=== PATIENT | male | born 1945 | race Caucasian/White ===

== ENCOUNTER 2018-02-02 18:20 | Inpatient (IN) | payer OTHER ==
[~2018-02-02] VITALS: Ht 172.7 cm; Wt 93.7 kg
--- NOTE | ~2018-02-02 | HEMODYNAMI ---
PATIENT:WILNER ROLLINS MEDICAL RECORD: [id number] : 47 LOCATION:[facility]- ADMISSION DATE: 02/02/18 Generatedon:02/02/201819:32 Patient name: WILNER ROLLINS Patient #: [id number] SSN: : 1945 Date of study: 02/02/2018 Page: Of Hemodynamic Procedure Report Patient Data Patient Demographics Procedure consent was obtained First Name: WILNER Gender: Male Last Name: AYO : 1945 Patient #: [id number] Age: 72 year(s) Race: Unknown Additional ID: [id number] Contact details [address]: [address] [place] [address] State: [place] City: [place] Zip code: [address] Admission Admission Data Admission Date: 02/02/2018 Admission Time: 18:20 Room #: [facility] Weight (lbs.): 208 Weight (kg.): 94.35 Procedure Procedure Types Cath Procedure Diagnostic Procedure [facility] w/Coronaries PCI Procedure Coronary Stent Coronary Stent Additional AMI/SVG/DAIRY FARM OPERATOR PTCA or Stent AMI-BMS/JENNA Initial Procedure Description Procedure Date Procedure Date: 02/02/2018 Procedure Start Time: 19:03 Procedure End Time: 19:19 Procedure Staff Name Function Stephen Muller RT Monitor Yari Mcfarland RT Scrub Lucas Salcido RN Nurse Dany Schneider MD Performing Physician Procedure Data Cath Procedure Fluoroscopy Diagnostic fluoroscopy Total fluoroscopy Time: 3.4 time: 3.4 min min Diagnostic fluoroscopy Total fluoroscopy dose: 771 dose: 771 mGy mGy Contrast Material Contrast Material Type Amount (ml) Isovue 300 90 Entry Location Entry Primary Successful Side Size Upsize Upsize Entry Closure Succes sful Closure Location (Fr) 1 (Fr) 2 (Fr) Remarks Device Remarks Femoral Right 6 Fr Exoseal artery Short Estimated blood loss: 10 ml Diagnostic catheters Device Type Used For End Catheter Placement MULTIPACK Pigtail 5 Fr Procedure catheter MULTIPACK JL 4.0 5Fr Procedure catheter MULTIPACK 3DRC 5Fr Procedure catheter Procedure Complications No complications Procedure Medications Medication Administration Route Dosage Oxygen etCO2 Nasal cannula 2 l/min Heparin Flush Bag added to field 2 bags (1000units/500ml NS) 0.9% NaCl I.V. 100 ml/hr Lidocaine 2% added to field 20 Fentanyl I.V. 50 mcg Versed I.V. 1 mg Fentanyl I.V. 50 mcg Versed I.V. 1 mg Heparin Bolus I.V. 4000 units Integrilin (Bolus I.V. 8.5 ml 2mg/ml) Integrilin (Bolus wasted 1.5 ml 2mg/ml) Hemodynamics Rest Heart Rate: 77 (bpm) Snapshots Pre Cath Intra NCS Post Cath Vital Signs Time Heart Resp SPO2 etCO2 NIBP (mmHg) Rhythm Pain Sedation Rate (ipm) (%) (mmHg) Status Level (bpm) 18:58:15 77 16 92 0 153/103(144) NSR 0 (11) 10(A) , No pain 19:02:29 81 17 92 34.9 126/88(109) NSR 0 (11) 10(A) , No pain 19:06:41 77 17 92 42.3 122/79(105) NSR 0 (11) 9(A) , No pain 19:10:53 73 16 92 37.2 121/75(100) NSR 0 (11) 9(A) , No pain 19:15:05 73 16 94 48.3 114/81(93) NSR 0 (11) 9(A) , No pain 19:19:10 75 17 93 46.9 133/87(110) NSR 0 (11) 9(A) , No pain Medications Time Medication Route Dose Verified Delivered Reason Notes Effectiveness by by 18:57:27 Oxygen etCO2 2 Dany Zavala Per physician Nasal l/min Wyatt Salcido RN cannula 18:57:36 Heparin Flush added 2 Dany Zavala used for Bag to bags Wyatt Salcido vice president mission integration (1000units/500ml field NS) 18:57:51 0.9% NaCl I.V. 100 Dany Zavala used for ml/hr Wyatt Salcido vice president mission integration 18:57:59 Lidocaine 2% added 20ml Dany Zavala used for to vial Wyatt Salcido vice president mission integration field 19:03:15 Fentanyl I.V. 50 Dany Freedmany for sedation mcg Wyatt Salcido RN 19:03:21 Versed I.V. 1 mg Dany Zavala for sedation Wyatt Salcido RN 19:05:25 Fentanyl I.V. 50 Dany Zavala for sedation mcg Wyatt Salcido RN 19:05:29 Versed I.V. 1 mg Dany Zavala for sedation Wyatt Salcido RN 19:10:11 Heparin Bolus I.V. 4000 Dany Zavala for units Wyatt Salcido RN anticoagulation 19:10:29 Integrilin I.V. 8.5 Dany Zavala for (Bolus 2mg/ml) ml Wyatt Salcido RN antiplatelet therapy 19:10:36 Integrilin wasted 1.5 Dany Zavala for (Bolus 2mg/ml) ml Wyatt Salcido RN antiplatelet therapy Procedure Log Time Note 18:40:19 Lucas Salcido RN sent for patient. Start room use. 18:40:22 Time tracking: Call back (After hours or weekends) 18:40:27 Plan of Care:Hemodynamics will remain stable., Cardiac rhythm will remain stable., Comfort level will be maintained., Respiratory function will remain adequate., Patient/ family verbilizes understanding of procedure., Procedure tolerated without complication., Recovers from procedure without complications.. 18:50:30 Patient received from Other to CCL 1 Alert and oriented. Tansferred to table in Supine position. 18:50:31 Warm blankets applied, and ludivina hugger turned on for patient comfort. 18:50:32 Correct patient and procedure confirmed by team. 18:50:33 Signed procedure consent form obtained from patient. 18:50:34 ECG and BP/O2 sat monitors applied to patient. 18:57:11 Vital chart was started 18:57:27 Oxygen 2 l/min etCO2 Nasal cannula was administered by Lucas Salcido RN; Per physician; 18:57:36 Heparin Flush Bag (1000units/500ml NS) 2 bags added to field was administered by Lucas Salcido RN; used for procedure; 18:57:51 0.9% NaCl 100 ml/hr I.V. was administered by Lucas Salcido RN; used for procedure; 18:57:59 Lidocaine 2% 20ml vial added to field was administered by Lucas Salcido RN; used for procedure; 18:59:03 Rhythm: w/ ST elevation 18:59:05 Full Disclosure recording started 18:59:06 Baseline sample Acquired. 18:59:10 H&P Date Dictated: 02/02/2018 Emergent; H&P N/A. 18:59:11 Pre-procedure instructions explained to patient. 18:59:12 Pre-op teaching completed and patient verbalized understanding. 18:59:13 Family unavailable. 18:59:14 Patient NPO since Midnight. 18:59:16 Is the patient allergic to Iodine/contrast media? No. 18:59:18 Is patient on blood thinner?Yes 18:59:21 ACC The patient was administered the following blood thiners within the last 24 hours: ACCPlavix 18:59:42 LOADED AT 1620 IN [place]. 18:59:44 Patient diabetic? Yes. 18:59:45 If diabetic: On Metformin? Yes 18:59:47 If on Metformin: Last Dose? 02/01/2018 18:59:49 Previous problem with sedation/anesthesia? No ? 18:59:50 Snore? Yes 18:59:51 Sleep apnea? No 18:59:52 Deviated septum? No 18:59:53 Sticks out tongue? Yes 18:59:53 Opens mouth fully? Yes 18:59:56 Airway obstruction? No ? 18:59:59 Dentures? Yes OUT 19:00:10 Pre procedure: right dorsailis pedis pulse 1+ Palpable, but thready & weak; easily obliterated 19:00:14 Patient pain scale 3/10 ?. 19:00:18 IV patent on arrival in right hand with 0.9% NaCl at [facility]. 19:00:19 HEPARIN DRIP DC'D UPON ARRIVAL TO ER. 19:00:20 Lab results completed and on chart. 19:00:23 Right groin area was prepped with chlora-prep and draped in sterile fashion 19:00:24 Sharps counted by scrub and verified by R.N. 19:00:24 Alarms reviewed by RRomán N. 19:00:25 --------ALL STOP TIME OUT------ 19:00:26 Final Timeout: patient, procedure, and site verified with staff and physician. All members of the team are in agreement. 19:00:33 Right groin site verified by team. 19:00:41 Physical assessment completed. ASA score P 3 - A patient with severe systemic disease as per Dany Schneider MD. 19:00:43 Sedation plan: IV Moderate Sedation Medication:Versed, Fentanyl 19:00:47 Use device set Femoral Dx 19:00:50 Use device set TAUTH PCI 19:00:54 ACIST Manifold (29238) opened to sterile field. 19:00:54 Tegaderm 4 x 4 (1626W) opened to sterile field. 19:00:55 ACIST Hand Control (46290) opened to sterile field. 19:00:57 Bag Decanter (2002S) opened to sterile field. 19:00:57 ACIST Syringe (39579) opened to sterile field. 19:00:58 Medline Cath Pack ([id number]) opened to sterile field. 19:00:59 DIAGNOSTIC WIRE .035 260cm J wire (021648) opened to sterile field. 19:01:01 DIAGNOSTIC Multipack 5Fr catheter set (FH8794) opened to sterile field. 19:01:04 INFLATOR Merit BasixCompak (UV5821) opened to sterile field. 19:01:05 CHOICE PT Extra Support 182cm wire ([id number]) opened to sterile field. 19:01:07 SHEATH 6FR [place] (OIA053) opened to sterile field. 19:01:15 IV Extension Set opened to sterile field. 19:03:15 Fentanyl 50 mcg I.V. was administered by Lucas Salcido RN; for sedation; 19:03:21 Versed 1 mg I.V. was administered by Lucas Salcido RN; for sedation; 19:03:37 Procedure started. 19:03:40 Local anesthetic to right femoral artery with Lidocaine 2% by Dany Schneider MD.INITIAL ACCESS ONLY 19:03:42 Zero performed for pressure channel P1 19:03:46 Zero performed for pressure channel P1 19:04:47 A 6 Fr Short sheath was inserted into the Right Femoral artery 19:05:25 Fentanyl 50 mcg I.V. was administered by Lucas Salcido RN; for sedation; 19:05:29 Versed 1 mg I.V. was administered by Lucas Salcido RN; for sedation; 19:05:37 A MULTIPACK Pigtail 5 Fr catheter was advanced over the wire and used for Procedure. 19:05:40 LV angiography performed. 19:05:41 LV gram done using PAULINO 19:05:46 EF : 40 % 19::49 Injector settings: Ml/sec: 10, Volume: 20, 19:05:50 Catheter removed. 19:05:54 A MULTIPACK JL 4.0 5Fr catheter was advanced over the wire and used for Procedure. 19:06:46 LCA angiography performed. 19:06:47 Catheter removed. 19::53 A MULTIPACK 3DRC 5Fr catheter was advanced over the wire and used for Procedure. 19:07:17 RCA angiography performed. 19:07:18 Catheter removed. 19:07:22 GUIDE 6FR AR 2.0 catheter ([id number]) opened to sterile field. 19::40 6 Fr AR 2 guide catheter was inserted over the wire 19::53 CPTXS wire advanced. 19:08:01 Patient Weight : 208 lbs 19:08:50 Wire advanced across lesion. 19:10:11 Heparin Bolus 4000 units I.V. was administered by Lucas Salcido RN; for anticoagulation; 19:10:12 Inflate balloon Inflation number: 1 A EUPHORA 2.5 x 20 Balloon ([id number]) was prepped and advanced across the Mid RCA, then inflated to 13 AUDRA for 0:10 (min:sec). 19:10:29 Integrilin (Bolus 2mg/ml) 8.5 ml I.V. was administered by Lucas Salcido RN; for antiplatelet therapy; 19:10:36 Integrilin (Bolus 2mg/ml) 1.5 ml wasted was administered by Lucas Salcido RN; for antiplatelet therapy; 19:10:37 Multiple inflations made at 21 Atms. 19:11:17 Balloon removed over the wire. 19:12:18 Place stent Inflation Number: 1 A INTEGRITY RX 3.0 x 30 stent ([id number]) was prepped and advanced across the R PDA. The stent was deployed at 9 AUDRA for 0:10 (min:sec). 19:13:11 Stent catheter was removed intact over wire. 19:14:11 Place stent Inflation Number: 2 A INTEGRITY RX 3.5 x 26 stent ([id number]) was prepped and advanced across the Mid RCA. The stent was deployed at 15 AUDRA for 0:10 (min:sec). 19:14:32 Stent catheter was removed intact over wire. 19:14:33 Guide catheter removed. 19:14:33 Wire removed. 19:14:35 EXOSEAL 6Fr (EX600) opened to sterile field. 19:14:49 Sheath removed intact; hemostasis achieved with Exoseal to the Right Femoral artery. 19:14:51 Procedure ended.(Physican Out) 19:18:00 Fluoroscopy time 03.40 minutes. 19:18:04 Fluoroscopy dose: 771 mGy 19:18:04 Flurop Dose total: 771 19:18:11 Contrast amount:Isovue 300 90ml. 19:18:12 Sharps counted by scrub and verified by R.N. 19:18:14 Insertion/operative site no bleeding no hematoma. 19:18:18 Post-op/insertion site Right Femoral artery dressed using a 4 x 4 and Tegaderm. 19:18:19 Post Procedure Pulses reassessed and unchanged 19:18:22 Post-procedure physical assessment completed. ASA score P 2 - A patient with mild systemic disease as per Dany Schneider MD. 19:18:24 Post procedure rhythm: sinus rhythm 19:18:28 Estimated blood loss: 10 ml 19:18:30 Post procedure instruction explained to patient.Patient verbalizes understanding. 19:18:31 Patient needs reinforcement of post procedure teaching. 19:19:00 Procedure type changed to Cath procedure, Diagnostic procedure, LHC, LHC w/Coronaries, PCI procedure, Coronary Stent, Coronary Stent Additional, AMI/SVG/DAIRY FARM OPERATOR PTCA or Stent, AMI-BMS/JENNA Initial 19:19:01 Procedure and supply charges have been captured, reviewed, submitted and are correct. 19:19:04 Procedure Complication : No complications 19:19:33 Vital chart was stopped 19:19:34 See physician's report for complete and final results. 19:19:41 Report given to CVICU. 19:19:46 Patient transfered to CVICU with Bed. 19:19:48 Full Disclosure recording stopped 19:19:48 Procedure ended. 19:19:55 End room use (Document Last) 19:30:27 Pt delevoped hematoma right groin. Femstop placed at 170. 19:31:10 New 20g IV started in the left forearm by Lucas Salcido RN. 19:31:23 FEMSTOP Gold ([id number]) opened to sterile field. 19:31:23 IV CATHETER 20g opened to sterile field. 19:31:43 IV in right hand dc'd. Intervention Summary Intervention Notes Time ActionType Lesion and Equipment Action# Pressure Duration Attributes Used 19:10:12 Inflate Mid RCA EUPHORA 2.5 1 13 00:10 balloon x 20 Balloon ([id number]) 19:12:18 Place stent R PDA INTEGRITY RX 1 9 00:10 3.0 x 30 stent ([id number]) 19:14:11 Place stent Mid RCA INTEGRITY RX 2 15 00:10 3.5 x 26 stent ([id number]) Device Usage Item Name Manufacture Quantity Catalog Number Hospital Part Current Mini mal Lot# / Charge Number Stock Stock Serial# Code Tegaderm 4 x 3M 1 1626W 245865 691391 246597 5 4 (1626W) ACIST Acist 1 13246 455283 206884 595978 5 Manifold Medical (42732) Systems Inc ACIST Hand Acist 1 70534 982190 017194 240189 5 Control Medical (40258) Systems Inc ACIST Acist 1 45237 105874 249844 800859 20 Syringe Medical (55184) Systems Inc Bag Decanter Microtek 1 2001S 823146 93393 013162 5 (2001S) Medical Inc. Medline Cath Medline 1 [id number] 081191 51669 062690 5 Pack ([id number]) DIAGNOSTIC St [place] 1 877595 215664 651646 988027 30 WIRE .035 260cm J wire (883425) DIAGNOSTIC Cardinal 1 LP3348 733705 77099 527480 30 Multipack Health 5Fr catheter set (QE6769) INFLATOR Merit 1 JZ0621 121307 952232 467077 15 [facility] Medical BasixCompak (UD7861) CHOICE PT [place] 1 [id number] 860623 257816 449790 5 Extra Scientific Support 182cm wire ([id number]) SHEATH 6FR Terumo 1 GYP115 849422 766017 531287 40 [place] (VLI316) IV Extension Hospira 1 86934-79 626026 70782 591975 5 Set MULTIPACK Cardinal 1 933909 5 Pigtail 5 Fr Health catheter MULTIPACK JL Cardinal 1 186565 5 4.0 5Fr Health catheter MULTIPACK Cardinal 1 060056 5 3DRC 5Fr Health catheter GUIDE 6FR AR Medtronic 1 [id number] 104137 94651 240737 1 2.0 catheter (UZ2UY40) EUPHORA 2.5 Medtronic 1 [id number] 647457 960838 062564 5 [id number] x 20 Balloon ([id number]) INTEGRITY RX Medtronic 1 [id number] 781228 772304 940586 5 [id number] 3.0 x 30 stent ([id number]) INTEGRITY RX Medtronic 1 [id number] 809724 407665 168883 5 [id number] 3.5 x 26 stent ([id number]) EXOSEAL 6Fr Cardinal 1 EX600 249520 153551 300930 10 (EX600) Health FEMSTOP Gold St [place] 1 X35784 271648 147754 820333 5 (J32467) IV CATHETER [address] [place] 1 0275482-08 773447 584402 151623 5 20g Signature Audit [place] Time Signature Unsigned Intra-Procedure 02/02/2018 Stephen Muller RT(R) 7:20:21 PM RT(R) 02/02/2018 7:29:59 PM Intra-Procedure 02/02/2018 Stephen Muller 7:32:25 PM RT(R) Signatures Monitor : Stephen Muller RT Signature : Date : Time : [facility] [address] [place] [address]
[2018-02-02 19:45] VITALS: BP 135/86
--- NOTE | 2018-02-02 19:45 | NUR ---
PT RECEIVED FROM [facility]. 2 STENTS IN RCA. FEM STOP IN PLACE. NO SIGNS OF BLEEDING. WILL MONITOR CAREFULLY. PULSES PALPABLE. RLE PULSE FOUND WITH DOPPLER
[2018-02-02] MEDS ORDERED: GLUCOPHAGE500 MG PO (19:52)
[2018-02-02] MEDS ORDERED: COREG 3.1253.125 MG PO (19:54)
[2018-02-02] MEDS ORDERED: CADUET 5 MG-201 EACH PO (19:54)
[2018-02-02] MEDS ORDERED: VITAMIN D5000 UNIT PO (19:55)
[2018-02-02 20:06] VITALS: BP 135/86; Ht 172.7 cm; Wt 93.7 kg
[2018-02-02 20:10] LABS: BASOPHILS 0.4 % (0-2); EOSINOPHILS 1.1 % (0-7); HEMOGLOBIN 15.3 g/dL (13.5-17.5); IMMATURE GRANULOCYTES 0.2 % (0-5); LYMPHOCYTES 22.6 % (15-50); MCH 32.1 pg (26.0-34.0); MCHC 36.4 g/dL (31.0-37.0); MCV 88.1 fL (80.0-100.0); MEAN PLATELET VOLUME 11.5 fL (7.4-10.4); MONOCYTES 7.1 % (2-11); NEUTROPHILS 68.6 % (40-80); PLATELET COUNT 175 10x3/uL (130-400); RBC 4.77 10x6/uL (4.20-6.10); RDW 12.7 % (11.5-14.5); WBC 8.5 10x3/uL (4.8-10.8)
[2018-02-02 20:48] LABS: CALC OSMOLALITY 286 mosm/kg (275-300); CALCIUM 8.5 mg/dL (8.5-10.1); CARBON DIOXIDE 24.8 mmol/L (21.0-32.0); CHLORIDE - SERUM 104 mmol/L (98-107); CREATININE - SERUM 0.8 mg/dL (0.6-1.3); GLUCOSE 231 mg/dL (74-106); POTASSIUM - SERUM 4.6 mmol/L (3.5-5.1); SODIUM 139 mmol/L (136-145); UREA NITROGEN 18 mg/dL (7-18); eGFR NON AFRICAN AMERICAN > 90 mL/min (90-120)
[2018-02-02 21:00] VITALS: BP 123/79
[2018-02-02 22:00] VITALS: BP 122/81
[2018-02-02 23:00] VITALS: BP 116/74
[2018-02-03] VITALS (12 sets, daily range): BP systolic 91–116; BP diastolic 61–78
--- NOTE | 2018-02-03 04:42 | NUR ---
NO CHANGES IN PT STATUS. PT RESTING COMFORTABLY IN BED VSS. CALL LIGHT IN REACH. ALL PULSES REMAIN PALPABLE. WILL MONITOR
--- NOTE | 2018-02-03 05:00 | NUR ---
PT REMAINS STABLE. NO ISSUES WITH BLEEDING PULSES PALP.
--- NOTE | 2018-02-03 07:30 | NUR ---
PT RESTING WITH EYES CLOSED. AROUSES TO VOICE. DENIES HAVING PAIN AT THIS TIME. HR IN 60S AND 70S. ON 2L OF O2 VIA NC. R-GROIN CATH SITE. SLIGHT REDNESS NOTED APPEARS TO BE FROM FEM STOP. NO HEMATOMA OR BLEEDING NOTED. PULSES PALPABLE IN UPPER AND LOWER EXTREMITIES. USES URINAL. 275ML OF MARIAN URINE NOTED. SHIFT ASSESSMENT COMPLETED. WILL CONTINUE TO MONITOR.
--- NOTE | 2018-02-03 09:03 | NUR ---
AM MEDS GIVEN. O2 SATURATION 96%. NC REMOVED AT THIS TIME. NO FURTHER NEEDS AT THIS TIME. WILL CONTINUE TO MONITOR.
--- NOTE | 2018-02-03 11:57 | NUR ---
RESTING COMFORTABLY. ON ROOM AIR. MEAL TRAY SET UP. NO FURTHER NEEDS AT THIS TIME. WILL CONTINUE TO MONITOR.
--- NOTE | 2018-02-03 11:58 | NUR ---
APPOINTMENT SET UP WITH DR. EUCEDA ON February AT 1000 AM.
[2018-02-03] MEDS ORDERED: BAYER CHEWABLE81 MG PO (13:06)
[2018-02-03] MEDS ORDERED: COREG 3.1253.125 MG PO (13:07)
--- NOTE | 2018-02-03 13:37 | OP ---
PATIENT NAME: WILNER ROLLINS MEDICAL RECORD: [id number] :47 LOCATION:[facility] ADMISSION DATE:02/02/18 SURGEON: GRACE EUCEDA MD DATE OF OPERATION: 02/02/2018 PROCEDURES: 1. PTCA and stent to the RCA. 2. PTCA and stent to the RCA PDA. 3. Left heart catheterization. 4. Selective coronary angiography. 5. Left ventriculogram. INDICATIONS: Acute inferior myocardial infarction. PROCEDURE IN DETAIL: After informed consent was obtained and after a detailed description of risks, benefits as well as alternative therapies, the patient elected to proceed with angiogram and angioplasty. The right femoral area was prepped and draped in normal sterile fashion. Right femoral artery was cannulated via modified Seldinger technique with placement of 6-Yi sheath. All catheters exchanged through this sheath. FINDINGS: Left ventriculogram was performed in standard 30-degree PAULINO view, reveals inferior hypokinesis. Overall ejection fraction 40%. SELECTIVE CORONARY ANGIOGRAPHY: 1. Left main is with no significant angiographic disease. 2. Left anterior descending has moderate irregularities but no flow-limiting stenosis. 3. Left circumflex has moderate irregularities but no flow-limiting stenosis. 4. Right coronary artery has 90% stenosis in the mid vessel and 100% stenosis of the PDA. PTCA STENT OF THE RCA and PDA: The PDA was addressed with a 3.0 x 30 mm Integrity and the RCA with a 3.5 x 26 mm Integrity. Result was 0% residual stenosis with confucianism of SAMRA-3 flow. IMPRESSION: Successful percutaneous transluminal coronary angioplasty stent of the right coronary artery going from 100% initial stenosis to 0% residual. TRANSINT:[id number] Voice Confirmation ID: [id number] DOCUMENT ID: [id number] GRACE EUCEDA MD at 1337 CC: [id number] DICTATION DATE: 02/02/181918 DIRECTIONAL DRILLER: 02/02/18 2234 ADM IN [place] [id number] [place] [address]
--- NOTE | 2018-02-03 13:37 | HP ---
PATIENT: WILNER ROLLINS MEDICAL RECORD: [id number] ACCOUNT: [id number] LOCATION:[facility].CV06 : [birth year] ADMISSION DATE: 02/02/18 PCP: No PCP HISTORY AND PHYSICAL EXAMINATION ADMITTING DIAGNOSES: 1. Acute myocardial infarction. 2. Coronary artery disease. 3. Diabetes. HISTORY OF PRESENT ILLNESS: This is a gentleman who for the past 2 nights has had chest pain but stayed at home with this. Today, the chest pain worsened. He presented to [facility] and found to have an acute ST-elevation myocardial infarction. He was given IV heparin run here. He just continued to have chest pain, although it is improved. PHYSICAL EXAMINATION: GENERAL APPEARANCE: Well nourished, well developed, appears stated age. Level of distress, comfortable. PSYCHIATRIC: Mental status, alert, normal affect. Orientation, oriented to time, place and person. EYES: Lids and conjunctivae, noninjected. No discharge, no pallor. ENT: Lips, teeth, gums, normal dentition. Oropharynx, no cyanosis, no pallor. NECK: Carotid arteries, bilateral normal upstroke, no bruits, no thrills. JUGULAR VEINS: No jugular venous pressure or distention. CERVICAL LYMPH NODES: Nontender, nonenlarged. THYROID: Not enlarged. Nontender. No nodules. LUNGS: Respiratory effort, unlabored. CHEST: Normal curvature. No thoracic deformity. No chest wall tenderness. Percussion, resonant. Auscultation, clear. No wheezes, no rales, no rhonchi. CARDIOVASCULAR: Precordial exam, nondisplaced. No heaves or pericardial thrills. Rate and rhythm, regular. Heart sounds, normal S1, normal S2. No S3, no gallop, no rub. Systolic murmur, not heard. Diastolic murmur, not heard. EXTREMITIES: No cyanosis, no edema. Peripheral pulses, full and equal in all extremities, except as noted. No bruits appreciated. ABDOMEN: Soft, nondistended. Normal aorta. No bruit. Nontender. No masses. Liver, nontender, no hepatomegaly. Spleen, nontender, no splenomegaly. MUSCULOSKELETAL: No joint tenderness. No joint swelling. No erythema. NEUROLOGICAL: Normal gait, normal strength, normal tone. SKIN: Warm and dry. OVERALL IMPRESSION: Acute myocardial infarction. We will proceed with coronary angiography. Further care depends on the findings of the angiography. TRANSINT:[id number] Voice Confirmation ID: [id number] DOCUMENT ID: [id number] HISTORY AND PHYSICAL [id number] WILNER ROLLINS JEFFREY MD at 1337 CC: [id number] DICTATION DATE: 02/02/18 185 GROUND HOST/HOSTESS: 02/02/1820[address] [facility] [address] [place] [address]
--- NOTE | 2018-02-03 14:26 | NUR ---
DISCHARGE INTRUCTIONS GIVEN. DISCHARGE PAPERS SIGNED AND PLACED IN CHART. L-FOREARM PIV DC'C WITH CATHETER TIP INTACT. PT DISCHARGED AT THIS TIME. PESONAL BELONGINGS SENT WITH PATIENT. WHEELED OUT TO PERSONAL VEHICLE.
--- NOTE | 2018-02-03 18:51 | MORECARE ---
CASE MANAGEMENT DISCHARGE SUMMARY PATIENT: WILNER ROLLINS UNIT: [id number] ADM DATE: 02/02/18 AGE: 72 : 46 SEX: M ROOM/BED: D[facility] AUTHOR: RADU LAMA PHYSICIAN: REFERRING PHYSICIAN: GRACE EUCEDA MD DATE OF SERVICE: 02/03/18 Discharge Plan Patient Name: WILNER ROLLINS [facility] [facility] 1945 Planned Disposition: Home Anticipated Discharge Date: Discharge Date: 02/03/2018 Expected LOS: Initial Reviewer: [email or web address] Initial Review Date: 02/02/2018 Generated: 02/03/18 7:51 pm Patient Name: WILNER ROLLINS Page 91507 at 1851 All edits/amendments must be made on the electronic document DICTATION DATE: 02/03/181850 PRODUCTION UNDERWRITER: RICO 02/03/181850 RPT#: [id number] DC DATE:02/03/18 STATUS: DIS IN [facility] [address] [facility] [place] [address] END OF REPORT
--- NOTE | 2018-02-03 18:58 | MORECARE ---
CASE MANAGEMENT DISCHARGE SUMMARY PATIENT: WILNER ROLLINS UNIT: [id number] ADM DATE: 02/02/18 AGE: 72 : 46 SEX: M ROOM/BED: D[facility] AUTHOR: RADU LAMA PHYSICIAN: REFERRING PHYSICIAN: GRACE EUCEDA MD DATE OF SERVICE: 02/03/18 Discharge Plan Patient Name: WILNER ROLLINS Facility: [facility]:[place] : 1945 Planned Disposition: Home Anticipated Discharge Date: Discharge Date: 02/03/2018 Expected LOS: Initial Reviewer: [email or web address] Initial Review Date: 02/02/2018 Generated: 02/03/18 7:58 pm DCPIA - Discharge Planning Initial Assessment Updated by [email or web address]: Mag Crowell on 02/03/18 6:54 pm * Is the patient Alert and Oriented? Yes * How many steps to enter\exit or inside your home? * PCP [facility] * Pharmacy [facility] * Preadmission Environment Home Alone * ADLs Independent * List name and contact numbers for known caregivers / representatives who currently or will assist patient after discharge: Julio Catesom - Friend [phone] Symone Newell - friend [phone] * Verbal permission to speak to the caregivers and representatives has been obtained from the patient. Yes * Community resources currently utilized None * Additional services required to return to the preadmission environment? No * Can the patient safely return to the preadmission environment? Yes * Has this patient been hospitalized within the prior 30 days at any hospital? No Last DP export: 02/03/18 5:51 Patient Name: WILNER ROLLINS Page 81084 at 1858 All edits/amendments must be made on the electronic document DICTATION DATE: 02/03/181857 SOCIAL SERVICES DIRECTOR: RICO 02/03/181857 RPT#: [id number] DC DATE:02/03/18 STATUS: DIS IN [facility] [address] [place] [address] END OF REPORT
--- NOTE | 2018-02-03 19:06 | MORECARE ---
CASE MANAGEMENT DISCHARGE SUMMARY PATIENT: WILNER ROLLINS UNIT: [id number] ADM DATE: 02/02/18 AGE: 72 : 46 SEX: M ROOM/BED: [facility] AUTHOR: DAINA,DOC PHYSICIAN: REFERRING PHYSICIAN: GRACE EUCEDA MD DATE OF SERVICE: 02/03/18 Discharge Plan Patient Name: WILNER ROLLINS Facility: [facility]:[place] : 1945 Planned Disposition: Home Anticipated Discharge Date: Discharge Date: 02/03/2018 Expected LOS: Initial Reviewer: [email or web address] Initial Review Date: 02/02/2018 Generated: 02/03/18 8:05 pm Comments DCP- Discharge Planning Updated by [email or web address]: Mag Crowell on 02/03/18 6:[address] Late Entry 02-03-18 @ 1400 Patient Name: WILNER ROLLINS Admission Status: Elective Accout number: [id number] Admission Date: 02-02-2018 : 1945 Admission Diagnosis: Attending: RODERICK EUCEDA Current LOS: 1 Anticipated DC Date: Planned Disposition: Home Primary Insurance: [facility] Discharge Planning Comments: CM met with patient and friend after obtaining verbal consent. Patient plans on returning home after discharge. Patient denies any discharge needs. CM will continue to follow and assist with discharge planning / needs. Finish Repair Worker: Mag Crowell DCPIA - Discharge Planning Initial Assessment Updated by [email or web address]: Mag Crowell on 02/03/18 6:54 pm * Is the patient Alert and Oriented? Yes * How many steps to enter\exit or inside your home? * PCP [facility] * Pharmacy [facility] * Preadmission Environment Home Alone * ADLs Independent * List name and contact numbers for known caregivers / representatives who currently or will assist patient after discharge: Julio Butterfield - Friend [phone] Symone eNwell - friend [phone] * Verbal permission to speak to the caregivers and representatives has been obtained from the patient. Yes * Community resources currently utilized None * Additional services required to return to the preadmission environment? No * Can the patient safely return to the preadmission environment? Yes * Has this patient been hospitalized within the prior 30 days at any hospital? No Last DP export: 02/03/18 5:58 Patient Name: WILNER ROLLINS Page [id number] at 1906 All edits/amendments must be made on the electronic document DICTATION DATE: 02/03/181904 PAYROLL MANAGER: RICO 02/03/181904 RPT#: [id number] DC DATE:02/03/18 STATUS: DIS IN [facility] [address] [place] [address] END OF REPORT
--- NOTE | 2018-02-06 14:36 | DS ---
PATIENT:WILNER ROLLINS :[birth year] MEDICAL RECORD: [id number] DISCHARGE SUMMARY ADMISSION DATE: 02/02/18 DISCHARGE DATE: 02/03/18 DISCHARGE DIAGNOSES: 1. Acute inferior myocardial infarction. 2. PTCA and stent, RCA. 3. Hyperlipidemia. This gentleman presents with acute inferior myocardial infarction to [facility], was helicoptered here. He underwent PTCA and stent of the RCA. He had uneventful postop course and was discharged home with the addition of aspirin, Plavix, and Pravachol to his medical regimen. No beta-janet was undertaken secondary to bradycardia. He will follow up with [facility] in one month. TRANSINT:[id number] Voice Confirmation ID: [id number] DOCUMENT ID: [id number] GRACE EUCEDA MD at 1436 CC: [id number] DICTATION DATE: 02/03/18 1047 [employer] WORKER: 02/04/18 1118 DIS IN 02/03/18 [facility] [id number] [place] [address]
== END 2018-02-03 14:29 | disposition home or self-care (01) | DRG 249 ==
LOC: D.CVICU 18:20 → D.SDCHOLD 18:20 → D.CVICU 19:45
PROVIDERS: ADMIT Internal Medicine Interventional Cardiology
PROC: B2151ZZ Fluoroscopy of Left Heart using Low Osmolar Contrast (ICD-10-PCS; 2018-02-02)
PROC: 4A023N7 Measurement of Cardiac Sampling and Pressure, Left Heart, Percutaneous Approach (ICD-10-PCS; 2018-02-02)
PROC: 02703EZ Dilation of Coronary Artery, One Artery with Two Intraluminal Devices, Percutaneous Approach (ICD-10-PCS; principal; 2018-02-02 19:00)
PROC: B2111ZZ Fluoroscopy of Multiple Coronary Arteries using Low Osmolar Contrast (ICD-10-PCS; 2018-02-02 19:00)
DX: I21.19 ST elevation (STEMI) myocardial infarction involving other coronary artery of inferior wall (principal); E11.9 Type 2 diabetes mellitus without complications; I25.10 Atherosclerotic heart disease of native coronary artery without angina pectoris; E78.5 Hyperlipidemia, unspecified

== ENCOUNTER 2018-02-06 01:42 | Inpatient (IN) | payer OTHER, MEDICARE ==
[2018-02-06] VITALS (41 sets, daily range): BP systolic 98–156; BP diastolic 67–101; Ht 172.7 cm; Wt 92.7 kg
[~2018-02-06] VITALS: Ht 172.7 cm; Wt 92.7 kg
--- NOTE | ~2018-02-06 | HEMODYNAMI ---
PATIENT:WILNER ROLLINS MEDICAL RECORD: [id number] : 47 [facility] AD[facility]ION DATE: 02/06/18 Generatedon:02/06/201815:38 Patient name: WILNER ROLLINS Patient #: [id number] SSN: : 1945 Date of study: 02/06/2018 Page: Of Hemodynamic Procedure Report Patient Data Patient Demographics Procedure consent was obtained First Name: WILNER Gender: Male Last Name: AYO : 1945 Patient #: [id number] Age: 72 year(s) Race: Unknown Additional ID: [id number] Contact details Address: [address] [place] [address] State: [place] City: [place] Zip code: [address] Admission Admission Data Admission Date: 02/06/2018 Admission Time: 3:40 Room #: D.CV07 Procedure Procedure Types Cath Procedure Diagnostic Procedure LHC LH w/Coronaries PCI Procedure Coronary Stent Coronary Stent Initial Procedure Description Procedure Date Procedure Date: 02/06/2018 Procedure Start Time: 14:56 Procedure End Time: 15:23 Procedure Staff Name Function Marla Munguia RT Scrub Stephen Muller RT Monitor Dany Schneider MD Performing Physician Caprice Warren RT Monitor Sandy Singh RN Nurse Procedure Data Cath Procedure Fluoroscopy Diagnostic fluoroscopy Total fluoroscopy Time: 8.5 time: 8.5 min min Diagnostic fluoroscopy Total fluoroscopy dose: dose: 1336 mGy 1336 mGy Contrast Material Contrast Material Type Amount (ml) Isovue 300 98 Entry Location Entry Primary Successful Side Size Upsize Upsize Entry Closure Succes sful Closure Location (Fr) 1 (Fr) 2 (Fr) Remarks Device Remarks Femoral Left 6 Fr Exoseal artery Short Estimated blood loss: 10 ml Diagnostic catheters Device Type Used For End Catheter Placement DIAGNOSTIC Pigtail 5Fr Procedure catheter ([id number]) DIAGNOSTIC Pigtail 5Fr Procedure catheter ([id number]) DIAGNOSTIC JL 4.0 5Fr Procedure catheter ([id number]) Procedure Complications No complications Procedure Medications Medication Administration Route Dosage 0.9% NaCl I.V. 100 ml/hr Oxygen etCO2 Nasal cannula 2 l/min Lidocaine 2% added to field 20 Heparin Flush Bag added to field 2 bags (1000units/500ml NS) Versed I.V. 2 mg Fentanyl I.V. 100 mcg Versed I.V. 1 mg Heparin Bolus I.V. 5000 units Lopressor I.V. 5 mg Integrilin (Bolus I.V. 8.5 ml 2mg/ml) Integrilin Drip I.V. drip 15 ml/hr (75mg/100ml) Effient P.O. 60 mg Hemodynamics Rest Pre Cath Intra NCS Post Cath Vital Signs Time Heart Resp SPO2 etCO2 NIBP (mmHg) Rhythm Pain Sedation Rate (ipm) (%) (mmHg) Status Level (bpm) 14:36:42 91 16 95 37.2 146/94(126) NSR 0 (11) 10(A) , No pain 14:40:54 96 18 97 31.3 147/92(121) NSR 0 (11) 10(A) , No pain 14:45:07 91 16 96 38 148/97(118) NSR 0 (11) 10(A) , No pain 14:49:17 100 16 97 31.9 138/85(97) NSR 0 (11) 10(A) , No pain 14:53:31 100 12 97 37.2 123/79(101) NSR 0 (11) 10(A) , No pain 14:57:39 96 13 96 34.3 119/76(88) NSR 0 (11) 9(A) , No pain 15:01:49 98 14 95 40.9 122/76(98) NSR 0 (11) 10(A) , No pain 15:05:57 103 15 95 41 123/78(97) NSR 0 (11) 9(A) , No pain 15:10:07 91 16 97 41 126/77(86) NSR 0 (11) 9(A) , No pain 15:14:19 97 16 98 39.5 122/78(98) NSR 0 (11) 9(A) , No pain 15:18:26 85 17 95 37.2 128/87(99) NSR 0 (11) 9(A) , No pain 15:22:36 85 17 97 35.8 142/88(113) NSR 0 (11) 10(A) , No pain Medications Time Medication Route Dose Verified Delivered Reason Notes Effectiveness by by 14:37:54 0.9% NaCl I.V. 100 Dany Sandy used for ml/hr Wyatt Singh data entry technician 14:38:02 Oxygen etCO2 2 Dany Sandy used for Nasal l/min Wyatt Singh procedure cannula RN 14:38:08 Lidocaine 2% added 20ml Dany Dany for local to vial Wyatt Schneider MD anesthetic field 14:38:13 Heparin Flush added 2 Dany Dany used for Bag to bags Wyatt Schneider MD procedure (1000units/500ml field NS) 14:54:27 Versed I.V. 2 mg Dany Sandy for sedation Wyatt Singh RN 14:54:35 Fentanyl I.V. 100 Dany Sandy for sedation mcg Wyatt Singh RN 15:01:53 Versed I.V. 1 mg Dany Sandy for sedation Wyatt Singh RN 15:01:58 Heparin Bolus I.V. 5000 Dany Sandy for verif ied units Wyatt Singh anticoagulation with Dr. GRIFFIN Schneider 15:07:47 Lopressor I.V. 5 mg Dany Sandy Per physician Wyatt Singh RN 15:19:55 Integrilin I.V. 8.5 Dany Sandy for waste d (Bolus 2mg/ml) ml Wyatt Singh anticoagulation 1.5mL RN 15:20:12 Integrilin Drip I.V. 15 Dany Sandy for (75mg/100ml) drip ml/hr Wyatt Singh anticoagulation RN 15:20:31 Effient P.O. 60 mg Dany Sandy for Wyatt Singh antiplatelet RN therapy Procedure Log Time Note 14:16:56 Stephen Muller RT(R) sent for patient. Start room use. 14:16:57 Time tracking: Regular hours (M-F 7:00 - 5:00) 14:17:01 Plan of Care:Hemodynamics will remain stable., Cardiac rhythm will remain stable., Comfort level will be maintained., Respiratory function will remain adequate., Patient/ family verbilizes understanding of procedure., Procedure tolerated without complication., Recovers from procedure without complications.. 14:35:22 Patient received from CVICU to CCL 2 Alert and oriented. Tansferred to table in Supine position. 14:35:23 Correct patient and procedure confirmed by team. 14:35:23 Warm blankets applied, and ludivina hugger turned on for patient comfort. 14:35:25 ECG and BP/O2 sat monitors applied to patient. 14:35:25 Signed procedure consent form obtained from patient. 14:35:32 Full Disclosure recording started 14:35:37 Rhythm: sinus rhythm , w/ ST elevation 14:35:41 Vital chart was started 14:35:48 H&P Date Dictated: 02/05/2018 Within 30 days and on chart.. 14:35:49 Pre-op teaching completed and patient verbalized understanding. 14:35:49 Pre-procedure instructions explained to patient. 14:35:51 Family unavailable. 14:35:59 Patient NPO since Midnight. 14:36:10 Is the patient allergic to Iodine/contrast media? No. 14:36:37 Is patient on blood thinner?Yes 14:36:39 ACC The patient was administered the following blood thiners within the last 24 hours: ACCPlavix 14:36:41 Patient diabetic? No. 14:36:48 Previous problem with sedation/anesthesia? No ? 14:36:50 Snore? Yes 14:36:51 Deviated septum? No 14:36:51 Sleep apnea? No 14:36:52 Opens mouth fully? Yes 14:36:53 Sticks out tongue? Yes 14:36:56 Airway obstruction? No ? 14:36:58 Dentures? No . 14:37:02 Pre procedure: left dorsailis pedis pulse 2+ Normal; easily identifiable; not easily obliterated 14:37:04 Patient pain scale 0/10 ?. 14:37:09 IV patent on arrival in left forearm with 0.9% NaCl at [facility]. 14:37:11 Lab results completed and on chart. 14:37:15 Left groin area was prepped with chlora-prep and draped in sterile fashion 14:37:16 Sharps counted by scrub and verified by R.N. 14:37:16 Alarms reviewed by R. N. 14:37:54 0.9% NaCl 100 ml/hr I.V. was administered by Sandy Singh RN; used for procedure; 14:38:02 Oxygen 2 l/min etCO2 Nasal cannula was administered by Sandy Singh RN; used for procedure; 14:38:08 Lidocaine 2% 20ml vial added to field was administered by Dany Schneider MD; for local anesthetic; 14:38:13 Heparin Flush Bag (1000units/500ml NS) 2 bags added to field was administered by Dany Schneider MD; used for procedure; 14:50:18 Use device set Femoral Dx 14:50:23 Bag Decanter (2002S) opened to sterile field. 14:50:23 ACIST Syringe (22175) opened to sterile field. 14:50:24 ACIST Hand Control (39975) opened to sterile field. 14:50:25 ACIST Manifold (64962) opened to sterile field. 14:50:26 Tegaderm 4 x 4 (1626W) opened to sterile field. 14:50:29 DIAGNOSTIC WIRE .035 260cm J wire (377494) opened to sterile field. 14:50:29 Medline Cath Pack ([id number]) opened to sterile field. 14:50:37 SHEATH 6FR Patterson (VOG006) opened to sterile field. 14:53:41 Final Timeout: patient, procedure, and site verified with staff and physician. All members of the team are in agreement. 14:53:41 --------ALL STOP TIME OUT------ 14:53:43 Left groin site verified by team. 14:53:47 Physical assessment completed. ASA score P 2 - A patient with mild systemic disease as per Dany Schneider MD. 14:53:51 Sedation plan: IV Moderate Sedation Medication:Versed, Fentanyl 14:54:27 Versed 2 mg I.V. was administered by Sandy Singh RN; for sedation; 14:54:35 Fentanyl 100 mcg I.V. was administered by Sandy Singh RN; for sedation; 14:56:48 Procedure started. 14:56:52 Local anesthetic to left femerol artery with Lidocaine 2% by Dany Schneider MD.INITIAL ACCESS ONLY 14:57:02 A 6 Fr Short sheath was inserted into the Left Femoral artery 14:57:29 A DIAGNOSTIC Pigtail 5Fr catheter ([id number]) was advanced over the wire and used for Procedure. 14:58:16 A DIAGNOSTIC Pigtail 5Fr catheter ([id number]) was advanced over the wire and used for Procedure. 14:58:23 LV gram done using PAULINO 14:58:25 Injector settings: Ml/sec: 10, Volume: 20, 14:58:29 EF : 40 % 14:58:31 Catheter removed. 14:58:37 A DIAGNOSTIC JL 4.0 5Fr catheter ([id number]) was advanced over the wire and used for Procedure. 14:58:43 LCA angiography performed. 14:58:46 Catheter removed. 14:59:03 GUIDE 6FR AR 2.0 catheter (ND0GF58) opened to sterile field. 14:59:10 6 Fr AR 2 guide catheter was inserted over the wire 14:59:27 CHOICE PT Extra Support 182cm wire ([id number]) opened to sterile field. 14:59:32 INFLATOR Merit BasixCompak (EI1966) opened to sterile field. 15:00:03 CHOICE ES 182 wire advanced. 15:00:36 UNABLE TO ADVANCE 182 15:00:38 Wire removed. 15:01:42 CHOICE PT Floppy Straight 300cm guide wire ([id number]) opened to sterile field. 15:01:53 Versed 1 mg I.V. was administered by Sandy Singh RN; for sedation; 15:01:58 Heparin Bolus 5000 units I.V. was administered by Sandy Singh RN; for anticoagulation; verified with Dr. Schneider 15:02:09 CHOICE ES 300 wire advanced. 15:03:38 Inflate balloon Inflation number: 1 A EMERGE OTW 2.5 x 30 balloon ([id number]) was prepped and advanced across the Dist RCA, then inflated to 15 AUDRA for 0:09 (min:sec). 15:04:05 Wire advanced across lesion. 15:04:08 CHOICE PT Floppy Straight 300cm guide wire ([id number]) opened to sterile field. 15:04:21 Balloon removed over the wire. 15:05:58 Inflate balloon Inflation number: 2 A EMERGE OTW 1.5 x 20 balloon ([id number]) was prepped and advanced across the Dist RCA, then inflated to 21 AUDRA for 0:00 (min:sec). 15:06:13 MULTIPLE INFLATIONS AT 21 AUDRA 15:06:39 Balloon removed over the wire. 15:07:47 Lopressor 5 mg I.V. was administered by Sandy Singh RN; Per physician; 15:08:49 The EMERGE OTW 2.5 x 30 balloon ([id number]) was advanced and then removed because of failure to cross lesion 15:10:30 Inflate balloon Inflation number: 3 A EUPHORA 2.5 x 20 Balloon ([id number]) was prepped and advanced across the Dist RCA, then inflated to 11 AUDRA for 0:00 (min:sec). 15:10:38 Inflation number: 4 The EUPHORA 2.5 x 20 Balloon ([id number]) was reinflated across the Dist RCA, to 13 AUDRA for 0:00 (min:sec). 15:10:57 Inflation number: 5 The EUPHORA 2.5 x 20 Balloon ([id number]) was reinflated across the Dist RCA, to 19 AUDRA for 0:00 (min:sec). 15:11:46 Inflation number: 6 The EUPHORA 2.5 x 20 Balloon ([id number]) was reinflated across the Dist RCA, to 17 AUDRA for 0:00 (min:sec). 15:12:08 Balloon removed over the wire. 15:14:11 Place stent Inflation Number: 7 A INTEGRITY OTW 2.5 X 26 stent ([id number]) was prepped and advanced across the Dist RCA. The stent was deployed at 21 AUDRA for 0:10 (min:sec). 15:14:27 Stent catheter was removed intact over wire. 15:16:25 Place stent Inflation Number: 8 A INTEGRITY RX 3.0 x 18 stent ([id number]) was prepped and advanced across the Dist RCA. The stent was deployed at 21 AUDRA for 0:00 (min:sec). 15:16:40 Stent catheter was removed intact over wire. 15:16:41 Wire removed. 15:16:43 Guide catheter removed. 15:17:09 EXOSEAL 6Fr (EX600) opened to sterile field. 15:17:25 Sheath removed intact; hemostasis achieved with Exoseal to the Left Femoral artery. 15:17:37 Procedure ended.(Physican Out) 15:19:00 Fluoroscopy time 08.50 minutes. 15:19:03 Fluoroscopy dose: 1336 mGy 15:19:03 Flurop Dose total: 1336 15:19:06 Contrast amount:Isovue 300 98ml. 15:19:07 Sharps counted by scrub and verified by R.N. 15:19:10 Post-op/insertion site Left Femoral artery dressed using a 4 x 4 and Tegaderm. 15:19:55 Integrilin (Bolus 2mg/ml) 8.5 ml I.V. was administered by Sandy Singh RN; for anticoagulation; wasted 1.5mL 15:20:01 Post-procedure physical assessment completed. ASA score P 2 - A patient with mild systemic disease as per Dany Schneider MD. 15:20:05 Post procedure rhythm: sinus rhythm 15:20:08 Estimated blood loss: 10 ml 15:20:09 Post procedure instruction explained to patient.Patient verbalizes understanding. 15:20:10 Patient needs reinforcement of post procedure teaching. 15:20:12 Integrilin Drip (75mg/100ml) 15 ml/hr I.V. drip was administered by Sandy Singh RN; for anticoagulation; 15:20:31 Effient 60 mg P.O. was administered by Sandy Singh RN; for antiplatelet therapy; 15:21:15 Procedure type changed to Cath procedure, Diagnostic procedure, LHC, LHC w/Coronaries, PCI procedure, Coronary Stent, Coronary Stent Initial 15:23:30 Procedure and supply charges have been captured, reviewed, submitted and are correct. 15:23:33 Procedure Complication : No complications 15:23:34 Vital chart was stopped 15:23:35 See physician's report for complete and final results. 15:23:38 Report given to CVICU. 15:23:48 Patient transfered to CVICU with Bed. 15:23:50 Full Disclosure recording stopped 15:23:50 Procedure ended. 15:23:53 End room use (Document Last) 15:38:08 FEMSTOP Gold ([id number]) opened to sterile field. 15:38:19 Femstop placed over the left femerol artery at 160 mmHg. Hemostasis achieved. Intervention Summary Intervention Notes Time ActionType Lesion and Equipment Action# Pressure Duration Attributes Used 15:03:38 Inflate Dist RCA EMERGE OTW 1 15 00:09 balloon 2.5 x 30 balloon ([id number]) 15:05:58 Inflate Dist RCA EMERGE OTW 2 21 00:00 balloon 1.5 x 20 balloon ([id number]) 15:08:49 Discard EMERGE OTW Balloon 2.5 x 30 balloon ([id number]) 15:10:30 Inflate Dist RCA EUPHORA 2.5 3 11 00:00 balloon x 20 Balloon ([id number]) 15:10:38 Reinflate Dist RCA EUPHORA 2.5 4 13 00:00 balloon x 20 Balloon ([id number]) 15:10:57 Reinflate Dist RCA EUPHORA 2.5 5 19 00:00 balloon x 20 Balloon ([id number]) 15:11:46 Reinflate Dist RCA EUPHORA 2.5 6 17 00:00 balloon x 20 Balloon ([id number]) 15:14:11 Place stent Dist RCA INTEGRITY 7 21 00:10 OTW 2.5 X 26 stent ([id number]) 15:16:25 Place stent Dist RCA INTEGRITY RX 8 21 00:00 3.0 x 18 stent ([id number]) Device Usage Item Name Manufacture Quantity Catalog Number Hospital Part Current Min imal Lot# / Charge Number Stock Stock Serial# Code ACIST Acist 1 71521 393708 048326 420330 20 Syringe Medical (13722) Systems Inc Bag Decanter Microtek 1 2001S 202633 94271 178256 5 (2001S) Medical Inc. ACIST Hand Acist 1 27527 889481 139437 592104 5 Control Medical (42285) Systems Inc ACIST Acist 1 71737 527170 297654 338535 5 Manifold Medical (32625) Systems Inc Tegaderm 4 x 3M 1 1626W 708712 901233 444334 5 4 (1626W) Medline Cath Medline 1 [id number] 698162 65156 241286 5 Pack ([id number]) DIAGNOSTIC St [place] 1 759509 145653 175396 278931 30 WIRE .035 260cm J wire (932487) SHEATH 6FR Terumo 1 MKO082 472298 067541 967755 40 Patterson (OJW117) DIAGNOSTIC Cardinal 2 559158E 914142 811672 732075 5 Pigtail 5Fr Health catheter (570907R) DIAGNOSTIC Cardinal 1 277798N 931018 947941 070988 10 JL 4.0 5Fr Health catheter (306643L) GUIDE 6FR AR Medtronic 1 GL5NF07 734664 10945 928608 1 2.0 catheter (TN5FF14) CHOICE PT [place] 1 [id number] 739846 605474 448982 5 Extra Scientific Support 182cm wire ([id number]) INFLATOR Merit 1 FQ7976 184348 348717 976939 15 [facility] Medical BasixCompak (SY9111) CHOICE PT [place] 2 [id number] 804803 898645 351847 5 Floppy Scientific Straight 300cm guide wire (65849332) EMERGE OTW [place] 1 [id number] 770567 388834 217654 5 91845727 2.5 x 30 Scientific balloon ([id number]) EMERGE OTW [place] 1 [id number] 993856 531036 110883 5 69934924 1.5 x 20 Scientific balloon ([id number]) EUPHORA 2.5 Medtronic 1 [id number] 762927 006656 760024 5 [id number] x 20 Balloon (KKQ0098H) INTEGRITY Medtronic 1 [id number] 630044 077407 7 [id number] OTW 2.5 X 26 stent ([id number]) INTEGRITY RX Medtronic 1 [id number] 732632 988407 903145 5 [id number] 3.0 x 18 stent ([id number]) EXOSEAL 6Fr Cardinal 1 EX600 375821 280418 512212 10 (EX600) Health FEMSTOP Gold [facility] [place] 1 X29948 849674 599825 975440 5 ([id number]) Signature Audit [place] Stage Time Signature Unsigned Intra-Procedure 02/06/2018 Caprice Munguia 3:28:19 PM RT(R) RT(R) 02/06/2018 3:38:00 PM Intra-Procedure 02/06/2018 Caprice Warren 3:38:45 PM RT(R) Signatures Monitor : Stephen Muller RT Signature : Date : Time : Monitor : Caprice Warren Signature : RT Date : Time : [address] [place] [address]
[~2018-02-06 01:42] MED LIST: BAYER CHEWABLE81 MG PO; CADUET 5 MG-201 EACH PO; COREG 3.1253.125 MG PO; GLUCOPHAGE500 MG PO; VITAMIN D5000 UNIT PO
[2018-02-06 02:19] LABS: APTT 24.2 SECONDS (22.8-39.4); INR 1.07 (0.85-1.17); PROTIME 13.4 SECONDS (11.6-15.0)
[2018-02-06 02:55] LABS: CKMB 39.9 U/L (0.0-3.6)
[2018-02-06 02:56] LABS: CREATINE KINASE 837 UL (21-232); TROPONIN-I 31.675 ng/mL (0.000-0.060)
--- NOTE | 2018-02-06 04:02 | NUR ---
PATIENT ARRIVED TO UNIT FROM ER VIA STRETCHER, ACCOMPANIED BY ER STAFF. AAOX4. FOLLOWING COMMANDS. MOVES ALL EXTREMITIES. DENIES PAIN OR DIFFICULTY BREATHING. HR 86. BP 131/86. RR 16. O2 SAT 97% ON 4 L NC. NO COMPLAINTS AT THIS TIME. LT AC PIV INFUSING NITROGLYCERIN DRIP AT 4.5 MLS/HR, WILL TITRATE PER DOCTOR'S ORDERS. URINAL PROVIDED PER PATIENT'S REQUEST, DENIES OTHER NEEDS. CALL LIGHT WITHIN REACH. SEE FLOW SHEET FOR COMPLETE ASSESSEMNT. WILL CONTINUE TO MONITOR.
[2018-02-06] MEDS ORDERED: PLAVIX75 MG PO (04:19)
[2018-02-06] MEDS ORDERED: TIMOPTIC 0.5 % O5 ML EACH EYE (04:20)
[2018-02-06] MEDS ORDERED: LUMIGAN 0.01%2.5 ML EACH EYE (04:20)
[2018-02-06] MEDS ORDERED: ULTRAM50 MG PO (04:21)
--- NOTE | 2018-02-06 05:00 | NUR ---
RESTING, TITRATING NITRO PER DOCTOR'S ORDERS, DENIES NEEDS. WILL CONTINUE TO MONITOR.
[2018-02-06 06:24] LABS: BASOPHILS 0.1 % (0-2); EOSINOPHILS 0.2 % (0-7); HEMATOCRIT 39.1 % (42.0-54.0); HEMOGLOBIN 13.9 g/dL (13.5-17.5); IMMATURE GRANULOCYTES 0.2 % (0-5); LYMPHOCYTES 11.9 % (15-50); MCH 31.9 pg (26.0-34.0); MCHC 35.5 g/dL (31.0-37.0); MCV 89.7 fL (80.0-100.0); MEAN PLATELET VOLUME 11.5 fL (7.4-10.4); MONOCYTES 10.5 % (2-11); NEUTROPHILS 77.1 % (40-80); PLATELET COUNT 193 10x3/uL (130-400); RBC 4.36 10x6/uL (4.20-6.10); RDW 12.7 % (11.5-14.5); WBC 12.4 10x3/uL (4.8-10.8)
[2018-02-06 06:41] LABS: CALC OSMOLALITY 287 mosm/kg (275-300); CALCIUM 8.7 mg/dL (8.5-10.1); CARBON DIOXIDE 25.8 mmol/L (21.0-32.0); CHLORIDE - SERUM 102 mmol/L (98-107); CREATININE - SERUM 0.8 mg/dL (0.6-1.3); GLUCOSE 264 mg/dL (74-106); MAGNESIUM - SERUM 1.7 mg/dL (1.8-2.4); POTASSIUM - SERUM 4.2 mmol/L (3.5-5.1); SODIUM 139 mmol/L (136-145); UREA NITROGEN 15 mg/dL (7-18); eGFR NON AFRICAN AMERICAN > 90 mL/min (90-120)
[2018-02-06 07:07] LABS: TROPONIN-I 56.217 ng/mL (0.000-0.060)
--- NOTE | 2018-02-06 12:46 | MORECARE ---
CASE MANAGEMENT DISCHARGE SUMMARY PATIENT: WINLER ROLLINS UNIT: [id number] ADM DATE: 02/06/18 AGE: 72 : 46 SEX: M [facility] AUTHOR: RADU LAMA PHYSICIAN: REFERRING PHYSICIAN: GRACE EUCEDA MD DATE OF SERVICE: 02/06/18 Discharge Plan Patient Name: WILNER ROLLINS Facility: [facility]:[place] : 1945 Planned Disposition: Home Anticipated Discharge Date: Discharge Date: Expected LOS: Initial Reviewer: [email or web address] Initial Review Date: 02/06/2018 Generated: 02/06/18 1:46 pm DCPIA - Discharge Planning Initial Assessment Updated by [email or web address]: Mag Crowell on 02/06/18 12:41 pm * Is the patient Alert and Oriented? Yes * How many steps to enter\exit or inside your home? Patient Name: WILNER ROLLINS Page 91154 at 1246 All edits/amendments must be made on the electronic document DICTATION DATE: 02/06/18 1246 SKIP PITMAN: RICO 02/06/18 1246 RPT#: [id number] DC DATE: STATUS: ADM IN [facility] [address] [place] [address] END OF REPORT
--- NOTE | 2018-02-06 12:54 | MORECARE ---
CASE MANAGEMENT DISCHARGE SUMMARY PATIENT: WILNER ROLLINS UNIT: [id number] ADM DATE: 02/06/18 AGE: 72 : 46 SEX: M ROOM/BED: D[facility] AUTHOR: RADU LAMA PHYSICIAN: REFERRING PHYSICIAN: GRACE EUCEDA MD DATE OF SERVICE: 02/06/18 Discharge Plan Patient Name: WILNER ROLLINS Facility: [facility]:[place] : 1945 Planned Disposition: Home Anticipated Discharge Date: Discharge Date: Expected LOS: Initial Reviewer: [email or web address] Initial Review Date: 02/06/2018 Generated: 02/06/18 1:54 pm DCPIA - Discharge Planning Initial Assessment Updated by [email or web address]: Mag Crowell on 02/06/18 12:47 pm * Is the patient Alert and Oriented? Yes * How many steps to enter\exit or inside your home? * PCP [facility] * Pharmacy [facility] * Preadmission Environment Home Alone * ADLs Independent * Equipment None * List name and contact numbers for known caregivers / representatives who currently or will assist patient after discharge: JACQUELINE MARIE - FRIEND- [phone] MADY MARTINES - FRIEND- [phone] RUDI LEONARD-DAUGHTER- [phone] * Verbal permission to speak to the caregivers and representatives has been obtained from the patient. Yes * Community resources currently utilized None * Additional services required to return to the preadmission environment? No * Can the patient safely return to the preadmission environment? Yes * Has this patient been hospitalized within the prior 30 days at any hospital? Yes Last DP export: 02/06/18 11:46 Patient Name: WILNER ROLLINS Page 26197 at 1254 All edits/amendments must be made on the electronic document DICTATION DATE: 02/06/18 1253 CREDIT COLLECTION SPECIALIST: RICO 02/06/18 1253 RPT#: [id number] DC DATE: STATUS: ADM IN [facility] [address] [place] [address] END OF REPORT
--- NOTE | 2018-02-06 13:01 | MORECARE ---
CASE MANAGEMENT DISCHARGE SUMMARY PATIENT: WILNER ROLLINS UNIT: [id number] ADM DATE: 02/06/18 AGE: 72 : 47 SEX: M ROOM/BED: D[facility] AUTHOR: DAINA,DOC PHYSICIAN: REFERRING PHYSICIAN: GRACE EUCEDA MD DATE OF SERVICE: 02/06/18 Discharge Plan Patient Name: WILNER ROLLINS Facility: [facility]:[place] : 1945 Planned Disposition: Home Anticipated Discharge Date: Discharge Date: Expected LOS: Initial Reviewer: [email or web address] Initial Review Date: 02/06/2018 Generated: 02/06/18 2:01 pm Comments DCP- Discharge Planning Updated by [email or web address]: Mag Crowell on 02/06/18 11:[address] Patient Name: WILNER ROLLINS Admission Status: ER Accout number: [id number] Admission Date: 02-06-2018 : 1945 Admission Diagnosis: Attending: RODERICK EUCEDA Current LOS: 1 Anticipated DC Date: Planned Disposition: Home Primary Insurance: [facility] Discharge Planning Comments: CM met with patient at bedside. Patient plans to return to his home alone after discharge. Patient denies any discharge needs at this time. CM will continue to follow and assist with discharge planning / needs Type Bar And Segment Assembler: Mag Crowell DCPIA - Discharge Planning Initial Assessment Updated by [email or web address]: Mga Crowell on 02/06/18 12:47 pm * Is the patient Alert and Oriented? Yes * How many steps to enter\exit or inside your home? * PCP [facility] * Pharmacy [facility] * Preadmission Environment Home Alone * ADLs Independent * Equipment None * List name and contact numbers for known caregivers / representatives who currently or will assist patient after discharge: JACQUELINE FRANK - FRIEND- [phone] MADY MARTINES - FRIEND- [phone] RUDI LEONARD-DAUGHTER- [phone] * Verbal permission to speak to the caregivers and representatives has been obtained from the patient. Yes * Community resources currently utilized None * Additional services required to return to the preadmission environment? No * Can the patient safely return to the preadmission environment? Yes * Has this patient been hospitalized within the prior 30 days at any hospital? Yes Last DP export: 02/06/18 11:54 Patient Name: WILNER ROLLINS Page [id number] at 1301 All edits/amendments must be made on the electronic document DICTATION DATE: 02/06/18 1301 TRACK PRODUCTION ENGINEER: RICO 02/06/18 1301 RPT#: [id number] DC DATE: STATUS: ADM IN [facility] [address] [place] [address] END OF REPORT
--- NOTE | 2018-02-06 13:03 | NUR ---
CHLORHEXIDINE BATH GIVEN, CONCENTS SIGNED FOR SURGICAL SCHEDULER AND PLACED ON CHART.
--- NOTE | 2018-02-06 14:35 | NUR ---
PT TO WOOD TANK ERECTOR. PRE OP MEDS GIVEN. CONCENTS ON CHART.
--- NOTE | 2018-02-06 14:36 | HP ---
PATIENT: WILNER ROLLINS MEDICAL RECORD: [id number] ACCOUNT: [id number] LOCATION:[facility] D.CV07 : [birth year] ADMISSION DATE: 02/06/18 PCP: No PCP HISTORY AND PHYSICAL EXAMINATION ADMITTING DIAGNOSES: 1. Acute inferior myocardial infarction. 2. Coronary artery disease. 3. Previous PTCA stent RCA. 4. Previous inferior myocardial infarction. 5. Plavix noncompliance. 6. Ischemic cardiomyopathy. HISTORY OF PRESENT ILLNESS: This is a gentleman who presented last week after 2 days of chest pain that he stayed home and had an inferior myocardial infarction and a closed RCA. He underwent PTCA stent of the RCA. He was discharged home, did not take any Plavix. He then presented to [facility] last night with again acute chest pain and acute inferior myocardial infarction. He was given TPA and transported here. His chest pain is gone. He still has ST elevation. PHYSICAL EXAMINATION: GENERAL APPEARANCE: Well-nourished, well-developed, appears stated age. Level of distress, comfortable. PSYCHIATRIC: Mental status, alert, normal affect. Orientation, oriented to time, place and person. EYES: Lids and conjunctiva, noninjected. No discharge, no pallor. ENT: Lips, teeth, gums, normal dentition. Oropharynx, no cyanosis, no pallor. NECK: Carotid arteries, bilateral normal upstroke, no bruits, no thrills. JUGULAR VEINS: No jugular venous pressure or distention. CERVICAL LYMPH NODES: Nontender, nonenlarged. THYROID: Not enlarged. Nontender. No nodules. LUNGS: Respiratory effort, unlabored. CHEST: Normal curvature. No thoracic deformity. No chest wall tenderness. Percussion, resonant. Auscultation, clear. No wheezes, no rales, no rhonchi. CARDIOVASCULAR: Precordial exam, nondisplaced. No heaves or pericardial thrills. Rate and rhythm, regular. Heart sounds, normal S1, normal S2. No S3, no gallop, no rub. Systolic murmur, not heard. Diastolic murmur, not heard. EXTREMITIES: No cyanosis, no edema. Peripheral pulses, full and equal in all extremities, except as noted. No bruits appreciated. ABDOMEN: Soft, nondistended. Normal aorta. No bruit. Nontender. No masses. Liver, nontender, no hepatomegaly. Spleen, nontender, no splenomegaly. MUSCULOSKELETAL: No joint tenderness. No joint swelling. No erythema. NEUROLOGICAL: Normal gait, normal strength, normal tone. SKIN: Warm and dry. OVERALL IMPRESSION: Repeat angiography. Obviously, clotted stent secondary to Plavix noncompliance. We will proceed with repeat coronary angiography in hopes of opening this one more time. He has been reloaded on Plavix and seems to understand the importance of taking his medication after the intervention. TRANSINT:[id number] Voice Confirmation ID: [id number] DOCUMENT ID: [id number] HISTORY AND PHYSICAL [id number] WILNER ROLLINS JEFFREY MD at 1436 CC: [id number] DICTATION DATE: 02/06/18 0850 COLORING CHECKER: 02/06/18 1004 ADM IN [facility] [id number] [place] [address]
--- NOTE | 2018-02-06 16:00 | NUR ---
1540-REC'D FROM EEG TECHNOLOGIST. ALL MONITORING EQUIPMENT ATTACHED AND ALARMS SET. PT SEDATED BUT AWAKENS EASLY, FOLLOWS COMMAND. L GROIN FEM STOP IN PLACE. NO HEMATOMA TO CATH SITE. NO BLEEDING NOTED. VSS, AFEBRILE.
--- NOTE | 2018-02-06 17:16 | NUR ---
ASA AND COREG GIVEN. PT SWALLOWING WITH OUT DIFFICULTY. PPP, FEM STOP PRESSURE TITRATED TO 120MMHG. NO HEMATOMA, NO ACTIVE BLEEDING. PPP.
--- NOTE | 2018-02-06 19:14 | NUR ---
BEDSIDE SHIFT REPORT GIVEN BY DEPARTING RN. PT LAYING IN BED WITH EYES CLOSED SNORING SOFTLY. ASSESSMENT COMPLETE AT THIS TIME. RT GROIN BRUISED FROM PREVIOUS HEART CATH. LEFT GROIN DRESSING C/D/I. NO BRUISING, OOZING, OR HEMATOMA NOTED. AAOX4. PERRLA. VSS. NO SS OF DISTRESS.
--- NOTE | 2018-02-06 21:30 | NUR ---
BG 177. SEE MAR FOR DETAILS. DENIES PAIN. VOICES NO CONCERNS. WILL CONTINUE TO MONITOR.
--- NOTE | 2018-02-06 23:44 | NUR ---
REASSESSMENT COMPLETE. NO CHANGES TO NOTE. LAYING IN BED SLEEPING SOFTLY.
[2018-02-07] VITALS (9 sets, daily range): BP systolic 96–136; BP diastolic 48–84
--- NOTE | 2018-02-07 07:39 | NUR ---
SHIFT REPORT RECEIVED. AA&OX4. DENIES HAVING CHEST PAIN AT THIS TIME. NO FEVER. HR 98 REGULAR RHYTHM. BP 96/63 MAP 74. ON 4L NC WITH O2 SAT 96%. HAS R-FOREARM PIV SL AND L-AC PIV SL. 300ML OF DARK MARIAN URINE NOTED. BRUISING NOTED ON UPPER ARMS. L-GROIN DRESSING CDI. NO HEMATOMA NOTED. SHIFT ASSESSMENT COMPLETED. WILL CONTINUE TO MONITOR.
--- NOTE | 2018-02-07 08:31 | NUR ---
AM MEDS GIVEN. O2 TURNED DOWN TO 3L. WILL CONTINUE TO MONITOR.
--- NOTE | 2018-02-07 08:43 | NUR ---
EATING BREAKFAST. DR. HERNANDEZ AT BESIDE.
--- NOTE | 2018-02-07 09:30 | NUR ---
FLU VACCINE ADDRESSED WITH PT. HAS NOT HAD FLU VACCINE AND DOES NOT WANT IT AT THIS TIME. PT WILL BE DISCHARGED HOME TODAY SOON HIS RIDE GETS HERE.
--- NOTE | 2018-02-07 10:06 | NUR ---
BLOOD GLUCOSE 265. 10 UNITS OF HUMALOG GIVEN PER SLIDING SCALE. PT UP IN CHAIR. ON ROOM AIR. WAITING ON RIDE TO GET HERE.
--- NOTE | 2018-02-07 11:58 | NUR ---
LUNCH TRAY DELIVERED. SITTING UP IN CHAIR. WAITING ON RIDE IN ORDER TO BE DISCHARGED.
--- NOTE | 2018-02-07 13:01 | NUR ---
PIV ON RIGHT FOREARM AND L-AC DC'D WITH CATHETER TIP INTACT. BP AT THIS TIME WAS 122/73 MAP 89. DISCHARGE INTRUCTIONS REVIEWED WITH PATIENT. EFFIENT PRESCRIPTION GIVEN TO PATIENT. DR. HERNANDEZ INSTRUCTED PT IF NOT ABLE TO GET EFFIENT PRESCRIPTION TODAY TO TAKE HIS PLAVIX UNTIL HE IS ABLE TO GET HIS PRESCRIPTION FILLED. PT STATED UNDERSTANDING. WHEELED OUT TO PERSONAL VEHICLE. PHONE AND PHONE RESEARCH HYDROLOGIST SENT WITH PATIENT.
--- NOTE | 2018-02-08 09:32 | MORECARE ---
CASE MANAGEMENT DISCHARGE SUMMARY PATIENT: WILNER ROLLINS UNIT: [id number] ADM DATE: 02/06/18 AGE: 72 : [birth year] SEX: M ROOM/BED: D[facility] AUTHOR: DAINA,DOC PHYSICIAN: REFERRING PHYSICIAN: GRACE EUCEDA MD DATE OF SERVICE: 02/08/18 Discharge Plan Patient Name: WILNER ROLLINS Facility: [facility]:[place] : 1945 Planned Disposition: Home Anticipated Discharge Date: Discharge Date: 02/07/2018 Expected LOS: Initial Reviewer: [email or web address] Initial Review Date: 02/06/2018 Generated: 02/08/18 10:31 am Comments DCP- Discharge Planning Updated by [email or web address]: Mag Crowell on 02/06/18 11:[address] Patient Name: WILNER ROLLINS Admission Status: ER Accout number: [id number] Admission Date: 02-06-2018 : 1945 Admission Diagnosis: Attending: RODERICK EUCEDA Current LOS: 1 Anticipated DC Date: Planned Disposition: Home Primary Insurance: [facility] [facility] Discharge Planning Comments: CM met with patient at bedside. Patient plans to return to his home alone after discharge. Patient denies any discharge needs at this time. CM will continue to follow and assist with discharge planning / needs Tubular Splitting Machine Tender: Mag Crowell DCPIA - Discharge Planning Initial Assessment Updated by [email or web address]: Mag Crowell on 02/06/18 12:47 pm * Is the patient Alert and Oriented? Yes * How many steps to enter\exit or inside your home? * [facility] * [facility]acy [facility] * Preadmission Environment Home Alone * ADLs Independent * Equipment None * List name and contact numbers for known caregivers / representatives who currently or will assist patient after discharge: JACQUELINE FRANK - FRIEND- [phone] MADY MARTINES - FRIEND- [phone] RUDI LEONARD-DAUGHTER- [phone] * Verbal permission to speak to the caregivers and representatives has been obtained from the patient. Yes * Community resources currently utilized None * Additional services required to return to the preadmission environment? No * Can the patient safely return to the preadmission environment? Yes * Has this patient been hospitalized within the prior 30 days at any hospital? Yes Last DP export: 02/06/18 12:01 Patient Name: WILNER ROLLINS Page 25404 at 0932 All edits/amendments must be made on the electronic document DICTATION DATE: 02/08/18930 THERAPEUTIC RADIOLOGIST: [place] 02/08/18930 RPT#: [id number] DC DATE:02/07/18 STATUS: DIS IN [facility] [address] [place] [address] END OF REPORT
--- NOTE | 2018-02-21 13:28 | OP ---
PATIENT NAME: WILNER ROLLINS MEDICAL RECORD: [id number] :[birth year] LOCATION:[facility].CV07 ADMISSION DATE:02/06/18 SURGEON: GRACE EUCEDA MD DATE OF OPERATION: 02/06/2018 PROCEDURES: 1. PTCA stent RCA. 2. Left heart catheterization. 3. Selective coronary angiography. 4. Left ventriculogram. INDICATION: Acute inferior myocardial infarction. DESCRIPTION OF PROCEDURE: After informed consent was obtained and after detailed description of risks, benefits as well as alternative therapies, the patient elected to proceed with angiogram and angioplasty. The left femoral area was prepped and draped in normal sterile fashion. Left femoral artery was cannulated via modified Seldinger technique with placement of 6-Romansh sheath. All catheters exchanged through this sheath. FINDINGS: Left ventriculogram was performed in standard 30-degree PAULINO view, reveals inferior hypokinesis, but ejection fraction preserved at 50%. SELECTIVE CORONARY ANGIOGRAPHY: 1. Left main is with no significant angiographic disease. 2. Left anterior descending has mild irregularities, but no flow-limiting stenosis. 2. The left circumflex has mild irregularities, but no flow-limiting stenosis. 3. Right coronary has a total occlusion of the distal stent. PTCA STENT OF THE RIGHT CORONARY: We were able to traverse the total occlusion with a 1.5, 2.0, 2.5 balloon. Stenting was undertaken with a 2.5 x 26 mm Integrity and 3.0 x 18 mm Integrity. Result was 0% residual stenosis with jain of SAMRA-3 flow. OVERALL IMPRESSION: Successful PTCA stent of the RCA going from 100% initial stenosis to 0% residual stenosis. TRANSINT:[id number] Voice Confirmation ID: [id number] DOCUMENT ID: [id number] GRACE EUCEDA MD at 1328 CC: [id number] DICTATION DATE: 02/06/18 1530 FUND CONTROLLER: 02/06/18 2313 DIS IN 02/07/18 [place] [id number]
== END 2018-02-07 13:12 | disposition home or self-care (01) | DRG 248 ==
LOC: D.ER 01:42 → D.CVICU 03:40
PROVIDERS: Family Medicine; ADMIT Internal Medicine Interventional Cardiology
PROC: B2151ZZ Fluoroscopy of Left Heart using Low Osmolar Contrast (ICD-10-PCS; 2018-02-06)
PROC: 4A023N7 Measurement of Cardiac Sampling and Pressure, Left Heart, Percutaneous Approach (ICD-10-PCS; 2018-02-06)
PROC: 02703EZ Dilation of Coronary Artery, One Artery with Two Intraluminal Devices, Percutaneous Approach (ICD-10-PCS; principal; 2018-02-06 14:00)
PROC: B2111ZZ Fluoroscopy of Multiple Coronary Arteries using Low Osmolar Contrast (ICD-10-PCS; 2018-02-06 14:00)
DX: I97.190 Other postprocedural cardiac functional disturbances following cardiac surgery (principal); I21.A9 Other myocardial infarction type; T82.897A Other specified complication of cardiac prosthetic devices, implants and grafts, initial encounter; E11.9 Type 2 diabetes mellitus without complications; Z91.19 Patient's noncompliance with other medical treatment and regimen; I25.5 Ischemic cardiomyopathy; Z95.5 Presence of coronary angioplasty implant and graft